=== PATIENT | male | born 1975 | race Caucasian/White ===

== ENCOUNTER → 2018-09-14 | Outpatient (REF) | payer BC ==
[~2018-09-14] MED LIST: CIPR-326 PO; DON PO; HYDR-653 PO; NO ROUTINE MEDS; PER PO; PRE10 PO
[2018-09-14 16:39] LABS: PLATELET COUNT, AUTOMATED 212 K/uL (150-450)
== END ==
PROVIDERS: ATTEND Nurse Practitioner Family
DX: R00.2 Palpitations (principal)
CPT/HCPCS: 82040; 82247; 82310; 82374; 82435; 82565; 82947; 84075; 84132; 84155; 84295; 84450; 84460; 84484; 84520; 85025